=== PATIENT | male | born 1960 | race Caucasian/White ===

== ENCOUNTER 2016-05-31 15:00 | Emergency (ER) | payer OTHER, MEDICARE ==
[~2016-05-31] VITALS: Ht 165.1 cm; Wt 88.5 kg
[~2016-05-31 15:00] MED LIST: ALBUTEROL0.09 MG/A1 INH; ASPIRIN CHILDRE81 MG PO; CLOPIDOGREL75 MG PO; GLYBURIDE2.5 MG PO; HYDROCHLOROTHIA1 TA2 PO; METOPROLOL TART50 MG PO; OXYCODONE HYDRO10 M1 PO; PROTONIX 40MG T40 MG PO; SYMBICORT 160/41 PUF INH; VICODIN5-300 PO; VICTOZA6 MG/ML SC
--- NOTE | 2016-05-31 15:31 | ED GI/GU/ABDOMINAL COMPLAINT ---
History of Present Illness General Chief Complaint: Nausea, Vomiting, Diarrhea Stated Complaint: NVD,WEAKNESS Source: patient Exam Limitations: no limitations Vital Signs & Intake/Output Vital Signs & Intake/Output Vital Signs Date Time Temp Pulse Resp B/P Pulse O2 O2 Flow FiO2 Ox Delivery Rate 05/31 1838 98.3 74 18 127/79 100 Room Air 05/31 1713 97.6 68 18 110/66 97 Room Air 05/31 1619 99 Room Air 05/31 1500 96.7 80 18 131/70 97 Room Air Allergies Coded Allergies: No Known Allergies (05/31/16) Triage Note: PT BIBA FROM HOME. PT WAS SEEN AT [facility] ON SUNDAY AND WAS GIVEN IV ABX FOR DIVERTICULITIS AND SENT HOME WITH PO MEDS. PT STATES HE HAS HAD N/V/D AND IS FEELING WEAK TODAY. Triage Nurses Notes Reviewed? yes HPI: This patient is a 55-year-old male with a past medical history including diverticulitis currently on ciprofloxacin and metronidazole who presented to the emergency department today for evaluation of multiple complaints. The patient reported that he woke up this morning not feeling well. He reported the more he was walking around more short of breath he fell. He reported like was having anxiety. He got dizzy and his told him that he looked pale. He felt as though he was going to pass out. The patient reported some left shoulder and left-sided chest pain which has lessened since its onset. He also reported nausea, but no vomiting. He reported that he still has some residual lower abdominal pain which is, "much better," from when he was diagnosed with diverticulitis. He denied any fevers or chills. He denied any jaw pain. He reported that when he moves in certain directions it feels like it is difficult to breathe. He denied any constipation or diarrhea. (CRUZITO SWAN,[place]) Reconcile Medications Albuterol Sulfate (Albuterol Sulfate Hfa) 0.09 MG/Actuation ROZIAN 2 PUFF INH Q4- 6 PRN PRN SHORTNESS OF BREATH (Reported) 90 MCG PER PUFF Aspirin (Children's Aspirin) 81 MG CTB 1 TAB PO DAILY HEART HEALTH (Reported) Budesonide/Formoterol Fumara (Symbicort 160-4.5 Mcg Inhaler) 160 MCG/4.5 MCG PUF 2 PUF INH BID PRN BREATHING PROBLEMS (Reported) CLOPIDOGREL BISULFATE (Clopidogrel) 75 MG TAB 1 TAB PO DAILY BLOOD THINNER ( Reported) Glyburide 2.5 MG TAB 1 TAB PO BID DIABETES (Reported) HYDROCODONE/ACETAMINOPHEN (Hydrocodon-Acetaminophen 5-325) 1 TAB TAB 1 TAB PO Q6HR PRN PAIN Liraglutide (Victoza 3-Roberto) 6 MG/ML AVILA 1.8 mg SC DAILY DIABETES (Reported) LISINOPRIL/HYDROCHLOROTHIAZIDE (Lisinopril-Hctz 20-12.5 MG Tab) 1 TAB TAB 1 TAB PO DAILY HEART (Reported) Meclizine HCl 25 MG TABLET 1 TAB PO TIDPRN PRN dizziness Metoprolol Tartrate 50 MG TAB 1 TAB PO BID HEART (Reported) Ondansetron (Zofran Odt) 4 MG TAB.RAPDIS 1 TAB SL TID PRN nausea OXYCODONE HCL (Oxycodone Hydrochloride) 10 MG TAB 1 TAB PO 4 TIMES/DAY PAIN ( Reported) Pantoprazole Sodium (Protonix) 40 MG TAB 40 MG PO DAILY GERD (Reported) (ASHLEY LEWIS) Past History Travel History Traveled to [place] past 21 day No Medical History Any Pertinent Medical History? 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 No ([place] EAST PA-C) Review of Systems Review of Systems Constitutional: Reports: no symptoms. EENTM: Reports: no symptoms. Respiratory: Reports: see HPI. Cardiovascular: Reports: see HPI. GI: Reports: see HPI. Genitourinary: Reports: no symptoms. Musculoskeletal: Reports: see HPI. Skin: Reports: no symptoms. Neurological/Psychological: Reports: see HPI. All Other Systems: Reviewed and Negative ([place] EAST PA-C) Physical Exam Physical Exam Gastrointestinal: normal bowel sounds, soft, non-tender, no organomegaly, NO REBOUND OR GUARDING. nO PERITONEAL SIGNS. nONDISTENDED. nO MASSES APPRECIATED Comments: Well-developed well-nourished person in no acute distress HEENT: Normal EENT exam, head normocephalic/atraumatic, moist mucous membranes PERRLA bilaterally. EOMI bilaterally no nystagmus Nose is atraumatic. External auditory canal and Tympanic membranes clear. Neck: Supple, no lymphadenopathy. No midline tenderness. Full range of motion Back: Normal gait Cardiovascular: Regular rate and rhythm with no murmurs, rubs, or gallops. No carotid bruits appreciated. No JVD Respiratory: Chest nontender. No respiratory distress. Breath sounds clear to auscultation bilaterally with no wheezes, rales, or rhonchi. No diminished breath sounds or stridor Left upper extremity: No bony or muscular deformities. No effusions or overlying erythema or ecchymosis to the joint spaces. Full range of motion of the shoulder, elbow, and wrist. 5 out of 5 hat and cap drying room attendant strength. Capillary refill less than 2 seconds. Radial brachial pulses 2+ and strong. Neuro: Alert oriented x3, cranial nerves II throonce ugh XII grossly intact. Skin: No appreciable rash on exposed skin, skin is warm and dry. Psych: Mood and affect is normal Core Measures ACS in differential dx? Yes Severe Sepsis Present: No Septic Shock Present: No (CRUZITO SWAN,[place]) Progress Differential Diagnosis: AAA, AMI, appendicitis, biliary colic, bowel obstruction , colon cancer, cholecystitis, diverticulitis, gastritis, hepatitis, ischemic bowel, inflamm bowel dis, pancreatitis, PUD/GERD, perforated viscous Plan of Care: Orders Procedure Date/time Status Heart Healthy Diet 06/01 B Active TROPONIN LEVEL 05/31 1954 Complete EKG 05/31 1954 Active LACTIC ACID 05/31 1833 Active MISTAKE 05/31 1533 Active TROPONIN LEVEL 05/31 1533 Complete LIPASE 05/31 1533 Complete LACTIC ACID 05/31 1533 Complete DIRECT BILIRUBIN 05/31 153 Complete COMPREHENSIVE METABOLIC PANEL 05/31 1533 Complete CBC WITHOUT DIFFERENTIAL 05/31 153 Complete AMYLASE 05/31 153 Complete EKG 05/31 1533 Active Laboratory Tests 05/31/16 1951: Troponin I < 0.01 05/31/16 1556: Anion Gap 12, Estimated GFR > 60, BUN/Creatinine Ratio 13.0, Glucose 197 H, Lactic Acid 2.4 H, Calcium 9.7, Total Bilirubin 0.9, Direct Bilirubin 0.2, AST 47, ALT 92 H, Alkaline Phosphatase 124, Troponin I < 0.01, Total Protein 7.1, Albumin 4.4, Globulin 2.7, Albumin/Globulin Ratio 1.6, Amylase < 30 L, Lipase 120, CBC w Diff NO MAN DIFF REQ, RBC 5.43, MCV 90.1, MCH 30.8, RDW 13.4, MPV 5.8 L, Gran % 76.9 H, Lymphocytes % 14.1 L, Monocytes % 7.5, Eosinophils % 1.1, Basophils % 0.4, Absolute Granulocytes 8.4 H, Absolute Lymphocytes 1.5, Absolute Monocytes 0.8 H, Absolute Eosinophils 0.1, Absolute Basophils 0, PUBS MCHC 34.2 Diagnostic Imaging: Viewed by Me: Radiology Read. Discussed w/RAD: Radiology Read. CXR Impression: PATIENT: TEMITOPE HARRISON PRESENT AGE: 55 PATIENT ACCOUNT NO: [id number] : 61 LOCATION: [facility] ORDERING PHYSICIAN: [place] EAST PA-C SERVICE DATE: 05/31/16 EXAM TYPE: RAD - XRY-CHEST XRAY, PA AND LATERAL EXAMINATION: XR CHEST CLINICAL INFORMATION: 55-year-old male patient with chest pain and shortness of breath. COMPARISON: Last chest x- ray done 06/08/2010. TECHNIQUE: PA and lateral erect views of the chest. FINDINGS: The heart remains normal in size. Coronary artery stents are in place. An implantable loop recorder is in the soft tissues of the left anterior chest in a parasternal location. Lungs are clear and there is no evidence of consolidation or edema. No pleural effusion is seen. IMPRESSION: No acute disease. DICTATED BY: FELICITY PATTERSON MD DATE/TIME DICTATED:05/31/161705 MANAGER OF INTERNAL:MEGHA DATE/TIME TRANSCRIBED:05/31/161705 CONFIDENTIAL, DO NOT COPY WITHOUT APPROPRIATE AUTHORIZATION. <Electronically signed in Other Vendor System> SIGNED BY: FELICITY PATTERSON MD 05/31/16 3376 Initial ED EKG: normal axis, normal intervals, normal p-waves, normal sinus rhythm, no ST T wave changes, 73 BPM Hand-Off Endorsed To: ASHLEY LEWIS Endorsed Time: 1951 Pending: labs (CRUZITO SWAN,[place]) Repeat EKG: unchanged (ASHLEY LEWIS) Departure Departure Disposition: HOME OR SELF CARE Condition: Stable Clinical Impression Primary Impression: Pre-syncope Referrals: HUSSAIN CULLEN MD (PCP/Family) Departure Forms: Customer Survey General Discharge Information Prescriptions: Current Visit Scripts Meclizine HCl 1 TAB PO TIDPRN PRN dizziness #12 TAB Ondansetron (Zofran Odt) 1 TAB SL TID PRN nausea #10 TAB ([place] EAST PA-C) Departure Additional Instructions: Please follow-up with your primary care physician. Stay hydrated. Return for any worsening symptoms or concerns. You have decided to leave before your second troponin which is a heart attack test comes back. This could potentially be serious if it becomes positive. You will be contacted if the test comes back positive. Please go over all the results of your primary care doctor. You are going AGAINST MEDICAL ADVICE by leaving for second troponin comes back. You understands the risks of leaving. (ASHLEY LEWIS) PA/BUSINESS APPLICATIONS ANALYST Co-Sign Statement Statement: ED Attending supervision documentation- [] I saw and evaluated the patient. I have also reviewed all the pertinent lab results and diagnostic results. I agree with the findings and the plan of care as documented in the PA's/BUSINESS APPLICATIONS ANALYST's documentation. [X] I have reviewed the ED Record and agree with the PA's/BUSINESS APPLICATIONS ANALYST's documentation. [] Additions or exceptions (if any) to the PAs/BUSINESS APPLICATIONS ANALYST's note and plan are summarized below: [] (MAGALIS HEARN,SKYLER Foster)
[2016-05-31 16:03] LABS: ABSOLUTE BASOPHIL COUNT 0 /CUMM (0.0-0.2); ABSOLUTE EOSINOPHIL COUNT 0.1 /CUMM (0.0-0.7); ABSOLUTE GRANULOCYTE CT 8.4 /CUMM (1.4-6.5); ABSOLUTE LYMPH COUNT 1.5 /CUMM (1.2-3.4); ABSOLUTE MONOCYTE COUNT 0.8 /CUMM (0.10-0.60); BASOPHIL % 0.4 % (0.0-2.0); EOSINOPHIL % 1.1 % (0-5); GRANULOCYTE % 76.9 % (42.2-75.2); HEMATOCRIT 48.9 % (42-52); MEAN CORPUSCULAR HGB 30.8 PG (27.0-31.0); MEAN CORPUSCULAR HGB CONC 34.2 G/DL (33.0-37.0); MEAN CORPUSCULAR VOLUME 90.1 FL (80.0-94.0); MEAN PLATELET VOLUME 5.8 FL (7.4-10.4); PLATELET COUNT 236 /CUMM (130-400); RBC DISTRIBUTION WIDTH 13.4 % (11.5-14.5); RED BLOOD CELL CT 5.43 /CUMM (4.70-6.10); WHITE BLOOD CELL COUNT 10.9 /CUMM (4.8-10.8)
--- NOTE | 2016-05-31 17:26 | RADIOLOGY REPORT ---
EXAMINATION: XR CHEST CLINICAL INFORMATION: 55-year-old male patient with chest pain and shortness of breath. COMPARISON: Last chest x-ray done 06/08/2010. TECHNIQUE: PA and lateral erect views of the chest. FINDINGS: The heart remains normal in size. Coronary artery stents are in place. An implantable loop recorder is in the soft tissues of the left anterior chest in a parasternal location. Lungs are clear and there is no evidence of consolidation or edema. No pleural effusion is seen. IMPRESSION: No acute disease.
[2016-05-31 18:38] VITALS: BP 127/79
[2016-05-31] MEDS ORDERED: ZOFRAN ODT4 M1 SL (19:52)
[2016-05-31] MEDS ORDERED: MECLIZINE HCL25 MG PO (19:52)
== END 2016-05-31 20:42 ==
LOC: ERH 15:00
PROVIDERS: Physician Assistant
DX: R55 Syncope and collapse (principal); R19.7 Diarrhea, unspecified; R53.1 Weakness
CPT/HCPCS: 93005; 93010; 96374; 96375; J1885; J2405; J2765

== ENCOUNTER 2016-07-18 12:27 | Emergency (ER) | payer OTHER, MEDICARE ==
[~2016-07-18] VITALS: Ht 172.7 cm; Wt 88.9 kg
[~2016-07-18 12:27] MED LIST changes: +MECLIZINE HCL25 MG PO; +ZOFRAN ODT4 M1 SL
--- NOTE | 2016-07-18 12:57 | ED GENERAL ADULT ---
History of Present Illness General Chief Complaint: Male Genitourinary Problems Stated Complaint: CARDIO CATH THROUGH GROIN NOW SWOLLEN GROIN Source: patient, family, old records Exam Limitations: no limitations Vital Signs & Intake/Output Vital Signs & Intake/Output Vital Signs Date Time Temp Pulse Resp B/P B/P Pulse O2 O2 Flow FiO2 Mean Ox Delivery Rate 07/18 1447 98.0 86 15 110/74 100 Room Air 07/18 1243 99 Room Air 07/18 1233 97.7 84 20 119/70 97 Room Air ED Intake and Output 07/19 0000 07/18 1200 Intake Total 0 Output Total Balance 0 Intake, Oral 0 Patient 196 lb Weight Weight Reported by Patient Measurement Method Allergies Coded Allergies: No Known Allergies (05/31/16) Reconcile Medications Albuterol Sulfate (Albuterol Sulfate Hfa) 0.09 MG/Actuation ROZINA 2 PUFF INH Q4- 6 PRN PRN SHORTNESS OF BREATH (Reported) 90 MCG PER PUFF Aspirin (Children's Aspirin) 81 MG CTB 1 TAB PO DAILY HEART HEALTH (Reported) Budesonide/Formoterol Fumara (Symbicort 160-4.5 Mcg Inhaler) 160 MCG/4.5 MCG PUF 2 PUF INH BID PRN BREATHING PROBLEMS (Reported) CLOPIDOGREL BISULFATE (Clopidogrel) 75 MG TAB 1 TAB PO DAILY BLOOD THINNER ( Reported) Glyburide 2.5 MG TAB 1 TAB PO BID DIABETES (Reported) HYDROCODONE/ACETAMINOPHEN (Hydrocodon-Acetaminophen 5-325) 1 TAB TAB 1 TAB PO Q6HR PRN PAIN Liraglutide (Victoza 3-Roberto) 6 MG/ML AVILA 1.8 mg SC DAILY DIABETES (Reported) LISINOPRIL/HYDROCHLOROTHIAZIDE (Lisinopril-Hctz 20-12.5 MG Tab) 1 TAB TAB 1 TAB PO DAILY HEART (Reported) Meclizine HCl 25 MG TABLET 1 TAB PO TIDPRN PRN dizziness Metoprolol Tartrate 50 MG TAB 1 TAB PO BID HEART (Reported) Ondansetron (Zofran Odt) 4 MG TAB.RAPDIS 1 TAB SL TID PRN nausea OXYCODONE HCL (Oxycodone Hydrochloride) 10 MG TAB 1 TAB PO 4 TIMES/DAY PAIN ( Reported) Oxycodone HCl/Acetaminophen (Percocet 5-325 MG Tablet) 5 MG-325 MG TABLET 1 TAB PO BID PRN pain Pantoprazole Sodium (Protonix) 40 MG TAB 40 MG PO DAILY GERD (Reported) Triage Note: PT STATES CARDIAC CATHETERIZATION LAST SUNDAY AND NOW C/O SWOLLEN GROIN.. PT STATES HE HAD IT DONE AT [facility]. PT DENIES CP AND STATES HE IS ALWAYS SOB D/T COPD Triage Nurses Notes Reviewed? yes Onset: Abrupt Duration: day(s): (6), constant Timing: recent history Injury Environment: home Severity: mild, moderate Severity Numbers: 5 No Modifying Factors: none Associated Symptoms: denies HPI: 55-year-old male with recent elective cardiac catheterization performed as an outpatient last week presents to ER presents to the ER today complaining of swelling to his right groin at site where the catheterization was performed that has persisted for the past 6 days. He states has not improved however the bruising is improving. He denies any redness warmth or discharge. He denies any penile pain scrotal pain dysuria urgency frequency or hematuria. He is on Plavix. Patient denies chest pain shortness of breath he catheterization was performed at [facility]. Modifying factors or associated symptoms. 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 No (TEMITOPE FELTON) Review of Systems Review of Systems Constitutional: Reports: see HPI, chills. All Other Systems: Reviewed and Negative Comments Review of systems: See HPI, All other systems negative. Constitutional, no chills no fever, no malaise HEENT: No visual changes no sore throat no congestion, Cardiovascular: No chest pain , no palpitation Skin: no rashes, no change in skin Respiratory: No dyspnea no cough no sputum GI: No nausea no vomiting, no diarrhea, : No dysuria No hematuria, no frequency, Muscle skeletal: No joint pain, no back pain, no neck pain, Neurologic: No numbness n, no headache Psych: No stress Heme/endocrine: No bruising no bleeding Immunology: No lymphadenopathy (TEMITOPE FELTON) Physical Exam Physical Exam General Appearance: well developed/nourished, no apparent distress, alert Comments: Well-developed well-nourished person in no acute distress HEENT: Normal EENT exam; PERRL, EOMI, HEAD is atraumatic. moist mucous membranes. Neck: Supple, no lymphadenopathy, normal range of motion Back: Nontender, no CVA tenderness. Full range of motion Cardiovascular: Regular rate and rhythms no murmurs rubs Respiratory: Chest nontender.There were no bony deformities, no asymmetry. No respiratory distress. Patient speaking in full complete sentences. Breath sounds clear to auscultation bilaterally: NO W/R/R Abdomen: Soft, nontender nondistended, no appreciable organomegaly. Normal bowel sounds. No rebound/guarding no hernia there is healing ecchymosis over a mildly swollen right inguinal region no pulsatile mass no overlying erythema induration or fluctuance Extremity: No edema, full range of motion of extremities Neuro: Alert oriented x3, motor sensory normal, There were no obvious focal neurologic abnormalities. Skin: No appreciable rash on exposed skin, skin is warm and dry. Psych: Mood and affect is normal, memory and judgment is normal. Core Measures ACS in differential dx? No CVA/TIA Diagnosis: No Severe Sepsis Present: No Septic Shock Present: No (TEMITOPE FELTON) Progress Differential Diagnoses I considered the following diagnoses in my evaluation of the patient: [ Dissection, pseudoaneurysm, fistula abscess hernia Plan of Care: Orders Procedure Date/time Status COMPREHENSIVE METABOLIC PANEL 07/18 1248 Complete CBC WITHOUT DIFFERENTIAL 07/18 1248 Complete Laboratory Tests 07/18/16 1255: Anion Gap 14, Estimated GFR > 60, BUN/Creatinine Ratio 17.5, Glucose 212 H, Calcium 9.6, Total Bilirubin 0.9, AST 40, ALT 87 H, Alkaline Phosphatase 141 H , Total Protein 7.0, Albumin 4.3, Globulin 2.7, Albumin/Globulin Ratio 1.6, CBC w Diff NO MAN DIFF REQ, RBC 5.34, MCV 87.3, MCH 31.3 H, RDW 13.9, MPV 6.2 L, Gran % 61.8, Lymphocytes % 26.1, Monocytes % 9.6 H, Eosinophils % 2.0, Basophils % 0.5, Absolute Granulocytes 5.8, Absolute Lymphocytes 2.5, Absolute Monocytes 0.9 H, Absolute Eosinophils 0.2, Absolute Basophils 0, PUBS MCHC 35.8 CAT scan labs ordered patient denies any symptoms at this time case was discussed with Dr. Dixon (LEELEE WEAVER,TEMITOPE) Diagnostic Imaging: Viewed by Me: CT Scan. Discussed w/RAD: CT Scan. Radiology Impression: PATIENT: TEMITOPE HARRISON PRESENT AGE: 55 PATIENT ACCOUNT NO: [id number] : 61 LOCATION: [facility] ORDERING PHYSICIAN: TEMITOPE WEAVER SERVICE DATE: 07/18/16 EXAM TYPE: CAT - CT PELVIS ANGIOGRAM EXAMINATION: CT ANGIOGRAM PELVIS CLINICAL INFORMATION: 55-year- old male with right groin pain and swelling status post cardiac catheter last week. Evaluate for dissection or thrombus. COMPARISON: CT abdomen pelvis 2014 TECHNIQUE: Multiple axial images were obtained through the pelvis using a [address] scanner after the administration of 125 mL of Optiray 350 intravenous contrast. Images were reviewed on a dedicated 3-D workstation to perform 3-D reformations. DLP: 542.37 mGy-cm FINDINGS: VASCULAR: Imaged infrarenal abdominal aorta is nonaneurysmal. The inferior mesenteric artery is patent. Partially imaged bilateral accessory renal arteries are patent. The bilateral common, internal and external iliac arteries are patent. No evidence of aortic dissection or other acute vascular abnormality. The left common femoral and visualized superficial femoral and profunda femoral arteries are patent. There is mild atherosclerotic calcification identified within the left common femoral artery. The right common femoral artery is patent. A tiny focal dissection flap is noted within the common femoral artery (image 318, series 2). There are mild inflammatory changes identified surrounding the common femoral artery, likely related to recent cardiac catheterization. There is no evidence of a pseudoaneurysm. The visualized superficial femoral and profunda femoral arteries are patent. NONVASCULAR: Visualized bowel is nonobstructed. Mild diverticulosis is seen within the sigmoid colon without CT evidence of acute diverticulitis. A few coarse calcifications are noted within the prostate gland. Seminal vesicles appear grossly unremarkable. Urinary bladder is unremarkable. No pelvic free fluid or lymphadenopathy. No acute osseous abnormality. Severe degenerative changes are seen at L5-S1. IMPRESSION: 1. Mild inflammatory changes surrounding the right common femoral artery, likely related to recent catheterization. No focal fluid collection to suggest hematoma or evidence of pseudoaneurysm. There is a tiny focal dissection flap within the common femoral artery which is likely not clinically significant. 2. Diverticulosis without CT evidence of acute diverticulitis. DICTATED BY: ADIS CHAVEZ DO DATE/TIME DICTATED:07/18/161407 FACE WORKER:MEGHA DATE/TIME TRANSCRIBED:1407 CONFIDENTIAL, DO NOT COPY WITHOUT APPROPRIATE AUTHORIZATION. < Electronically signed in Other Vendor System> SIGNED BY: ADIS CHAVEZ DO 07/18/16 1430 Initial ED EKG: none (TEMITOPE FELTON) Departure Departure Time of Disposition: 1434 Disposition: HOME OR SELF CARE Condition: Stable Clinical Impression Primary Impression: Right groin pain Referrals: SINGER HEARN,HUSSAIN (PCP/Family) Additional Instructions: rest, ice, follow up iwth your pmd, lab coordinator. percocet for pain. this was sent to [facility] Departure Forms: Customer Survey General Discharge Information Prescriptions: Current Visit Scripts Oxycodone HCl/Acetaminophen (Percocet 5-325 MG Tablet) 1 TAB PO BID PRN pain #10 TAB (TEMITOPE FELTON) PA/DIE CASTING SUPERVISOR Co-Sign Statement Statement: ED Attending supervision documentation- [] I saw and evaluated the patient. I have also reviewed all the pertinent lab results and diagnostic results. I agree with the findings and the plan of care as documented in the PA's/DIE CASTING SUPERVISOR's documentation. [X] I have reviewed the ED Record and agree with the PA's/DIE CASTING SUPERVISOR's documentation. [] Additions or exceptions (if any) to the PAs/DIE CASTING SUPERVISOR's note and plan are summarized below: [] (DARWIN HEARN,MARIANNE) Critical Care Note Critical Care Note Critical Care Time: non-applicable (TEMITOPE FELTON)
[2016-07-18 13:05] LABS: ABSOLUTE BASOPHIL COUNT 0 /CUMM (0.0-0.2); ABSOLUTE EOSINOPHIL COUNT 0.2 /CUMM (0.0-0.7); ABSOLUTE GRANULOCYTE CT 5.8 /CUMM (1.4-6.5); ABSOLUTE LYMPH COUNT 2.5 /CUMM (1.2-3.4); ABSOLUTE MONOCYTE COUNT 0.9 /CUMM (0.10-0.60); BASOPHIL % 0.5 % (0.0-2.0); HEMATOCRIT 46.6 % (42-52); MEAN CORPUSCULAR HGB 31.3 PG (27.0-31.0); MEAN CORPUSCULAR HGB CONC 35.8 G/DL (33.0-37.0); MEAN CORPUSCULAR VOLUME 87.3 FL (80.0-94.0); MEAN PLATELET VOLUME 6.2 FL (7.4-10.4); RBC DISTRIBUTION WIDTH 13.9 % (11.5-14.5); RED BLOOD CELL CT 5.34 /CUMM (4.70-6.10); WHITE BLOOD CELL COUNT 9.4 /CUMM (4.8-10.8)
[2016-07-18 13:29] LABS: GRANULOCYTE % 61.8 % (42.2-75.2); PLATELET COUNT 226 /CUMM (130-400)
--- NOTE | 2016-07-18 14:30 | CT SCAN REPORT ---
EXAMINATION: CT ANGIOGRAM PELVIS CLINICAL INFORMATION: 55-year-old male with right groin pain and swelling status post cardiac catheter last week. Evaluate for dissection or thrombus. COMPARISON: CT abdomen pelvis 12/06/2014 TECHNIQUE: Multiple axial images were obtained through the pelvis using a [address] scanner after the administration of 125 mL of Optiray 350 intravenous contrast. Images were reviewed on a dedicated 3-D workstation to perform 3-D reformations. DLP: 542.37 mGy-cm FINDINGS: VASCULAR: Imaged infrarenal abdominal aorta is nonaneurysmal. The inferior mesenteric artery is patent. Partially imaged bilateral accessory renal arteries are patent. The bilateral common, internal and external iliac arteries are patent. No evidence of aortic dissection or other acute vascular abnormality. The left common femoral and visualized superficial femoral and profunda femoral arteries are patent. There is mild atherosclerotic calcification identified within the left common femoral artery. The right common femoral artery is patent. A tiny focal dissection flap is noted within the common femoral artery (image 318, series 2). There are mild inflammatory changes identified surrounding the common femoral artery, likely related to recent cardiac catheterization. There is no evidence of a pseudoaneurysm. The visualized superficial femoral and profunda femoral arteries are patent. NONVASCULAR: Visualized bowel is nonobstructed. Mild diverticulosis is seen within the sigmoid colon without CT evidence of acute diverticulitis. A few coarse calcifications are noted within the prostate gland. Seminal vesicles appear grossly unremarkable. Urinary bladder is unremarkable. No pelvic free fluid or lymphadenopathy. No acute osseous abnormality. Severe degenerative changes are seen at L5-S1. IMPRESSION: 1. Mild inflammatory changes surrounding the right common femoral artery, likely related to recent catheterization. No focal fluid collection to suggest hematoma or evidence of pseudoaneurysm. There is a tiny focal dissection flap within the common femoral artery which is likely not clinically significant. 2. Diverticulosis without CT evidence of acute diverticulitis.
[2016-07-18] MEDS ORDERED: PERCOCET 5-3251 EACH PO (14:37)
[2016-07-18 14:47] VITALS: BP 110/74
== END 2016-07-18 14:47 ==
LOC: ERH 12:27
PROVIDERS: Physician Assistant Medical
DX: R10.31 Right lower quadrant pain (principal)